=== PATIENT | female | born 1965 | race African-American/Black ===

== ENCOUNTER 2016-04-28 14:09 | Emergency (ER) | payer BC ==
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
[2016-04-28 14:45] VITALS: BP 111/72; PULSE 64; RESP 18; TEMP 97.2; O2SAT 99
[2016-04-28 16:29] LABS: AMPHETAMINE, URINE NEG (NEG); BARBITURATES, URINE NEG (NEG); COCAINE, URINE POS (NEG)
[2016-04-28 16:40] LABS: AUTOMATED NEUTROPHIL # 5.5 TH/MM3 (1.8-7.7); BASOPHIL % 0.6 % (0.0-2.0); EOSINOPHIL % 0.4 % (0.0-4.0); HEMATOCRIT 47.2 % (35.0-46.0); HEMO FLAGS DIFF FINAL; LYMPH % 14.8 % (9.0-44.0); LYMPHOCYTE # 1.1 TH/MM3 (1.0-4.8); MEAN CELL VOLUME 96.1 FL (80.0-100.0); MEAN CORPUSCULAR HEMOGLOBIN 30.6 PG (27.0-34.0); MEAN CORPUSCULAR HGB CONC 31.9 % (32.0-36.0); MONO % 9.5 % (0.0-8.0); NEUT % 74.7 % (16.0-70.0); PLATELET COUNT 197 TH/MM3 (150-450); RED BLOOD COUNT 4.92 MIL/MM3 (4.00-5.30); RED CELL DISTRIBUTION WIDTH 14.5 % (11.6-17.2); WHITE BLOOD COUNT 7.3 TH/MM3 (4.0-11.0)
[2016-04-28 17:01] LABS: ANION GAP 6 MEQ/L (5-15); BICARBONATE 25.8 MEQ/L (21.0-32.0); BLOOD UREA NITROGEN 13 MG/DL (7-18); CHLORIDE 107 MEQ/L (98-107); GLOMERULAR FILTRATION RATE 54 ML/MIN (>89); SODIUM (NA) 139 MEQ/L (136-145)
[2016-04-28 17:28] LABS: POTASSIUM 4.4 MEQ/L (3.5-5.1)
== END 2016-04-28 18:12 | disposition home or self-care (01) ==
LOC: NEDAMB 14:09
DX: F14.10 Cocaine abuse, uncomplicated (principal); F12.10 Cannabis abuse, uncomplicated; F17.210 Nicotine dependence, cigarettes, uncomplicated
CPT/HCPCS: 80048; 80307; 80320; 85025; 99284

== ENCOUNTER 2016-08-28 18:25 | Emergency (ER) | payer OTHER ==
[~2016-08-28] VITALS: Ht 167.6 cm; Wt 50.0 kg
[2016-08-28 18:34] VITALS: BP 176/92; PULSE 86; RESP 20; TEMP 98.1; O2SAT 98
[2016-08-28 19:44] LABS: AUTOMATED NEUTROPHIL # 6.3 TH/MM3 (1.8-7.7); BASOPHIL # 0.1 TH/MM3 (0-0.2); BASOPHIL % 0.9 % (0.0-2.0); EOSINOPHIL # 0.1 TH/MM3 (0-0.4); HEMATOCRIT 39.7 % (35.0-46.0); HEMO FLAGS DIFF FINAL; LYMPH % 17.7 % (9.0-44.0); LYMPHOCYTE # 1.5 TH/MM3 (1.0-4.8); MEAN CELL VOLUME 91.4 FL (80.0-100.0); MEAN CORPUSCULAR HEMOGLOBIN 31.5 PG (27.0-34.0); MEAN CORPUSCULAR HGB CONC 34.4 % (32.0-36.0); MONO % 5.7 % (0.0-8.0); NEUT % 74.7 % (16.0-70.0); PLATELET COUNT 273 TH/MM3 (150-450); RED BLOOD COUNT 4.35 MIL/MM3 (4.00-5.30); RED CELL DISTRIBUTION WIDTH 15.1 % (11.6-17.2); WHITE BLOOD COUNT 8.5 TH/MM3 (4.0-11.0)
--- NOTE | 2016-08-28 19:58 | PD ---
HPI Chief Complaint: Psychiatric Symptoms Time Seen by Provider: 18:51 Travel History International Travel<30 days: No Contact w/Intl Traveler<30days: No Traveled to known affect area: No History of Present Illness HPI This is a 50-year-old female who presents to the emergency department reporting that she wanted to hurt herself. She says she hears voices sometimes telling her to kill her self. She says she's been abusing cocaine `and K2. She is brought in under Marie act and police documented that she also is saying she wanted to kill other people. Patient doesn't provide much history. PFSH Past Medical History Gastrointestinal Disorders: Yes (GASTRITIS) Pancreatitis: Yes Ulcer: Yes ?: Not Menopausal: No Social History Alcohol Use: Yes Tobacco Use: Yes Substance Use: Yes Allergies-Medications (Allergen,Severity, Reaction): Coded Allergies: No Known Allergies (Unverified , 04/28/16) Reported Meds & Prescriptions Reported Meds & Active Scripts Active Review of Systems ROS Limitations: Psychotic Physical Exam Narrative GENERAL: Disheveled appearing. SKIN: Focused skin assessment warm and dry. HEAD: Atraumatic. Normocephalic. EYES: Pupils equal and round. No injection or drainage. ENT: Moist mucous membranes NECK: Trachea midline. CARDIOVASCULAR: Regular rate and rhythm. No murmur appreciated. RESPIRATORY: Clear to auscultation. Breath sounds equal bilaterally. GASTROINTESTINAL: Abdomen soft, non-tender, nondistended. MUSCULOSKELETAL: No obvious deformities. NEUROLOGICAL: Awake and alert. No obvious cranial nerve deficits. Moving all extremities. PSYCHIATRIC: Tearful, poor eye contact, poor insight and judgment. Data Data Last Documented VS Vital Signs Date Time Temp Pulse Resp B/P Pulse Ox O2 Delivery O2 Flow Rate FiO2 08/28/16 18:34 98.1 86 20 176/92 98 Orders Complete Blood Count With Diff (08/28/16 19:33) Comprehensive Metabolic Panel (08/28/16 19:33) ^ Insert Iv (08/28/16 19:33) Alcohol (Ethanol) (08/28/16 19:33) Drug Screen, Random Urine (08/28/16 19:33) Lorazepam Inj (Ativan Inj) (08/28/16 20:00) Lorazepam (Ativan) (08/28/16 20:15) Labs Laboratory Tests Test 08/28/16 19:35 White Blood Count 8.5 TH/MM3 Red Blood Count 4.35 MIL/MM3 Hemoglobin 13.7 GM/DL Hematocrit 39.7 % Mean Corpuscular Volume 91.4 FL Mean Corpuscular Hemoglobin 31.5 PG Mean Corpuscular Hemoglobin 34.4 % Concent Red Cell Distribution Width 15.1 % Platelet Count 273 TH/MM3 Mean Platelet Volume 6.8 FL Neutrophils (%) (Auto) 74.7 % Lymphocytes (%) (Auto) 17.7 % Monocytes (%) (Auto) 5.7 % Eosinophils (%) (Auto) 1.0 % Basophils (%) (Auto) 0.9 % Neutrophils # (Auto) 6.3 TH/MM3 Lymphocytes # (Auto) 1.5 TH/MM3 Monocytes # (Auto) 0.5 TH/MM3 Eosinophils # (Auto) 0.1 TH/MM3 Basophils # (Auto) 0.1 TH/MM3 CBC Comment DIFF FINAL Differential Comment Sodium Level 143 MEQ/L Potassium Level 3.7 MEQ/L Chloride Level 108 MEQ/L Carbon Dioxide Level 27.8 MEQ/L Anion Gap 7 MEQ/L Blood Urea Nitrogen 12 MG/DL Creatinine 1.00 MG/DL Estimat Glomerular Filtration 71 ML/MIN Rate Random Glucose 145 MG/DL Calcium Level 8.3 MG/DL Total Bilirubin 0.2 MG/DL Aspartate Amino Transf 20 U/L (AST/SGOT) Alanine Aminotransferase 25 U/L (ALT/SGPT) Alkaline Phosphatase 92 U/L Total Protein 7.0 GM/DL Albumin 3.0 GM/DL Urine Opiates Screen NEG Urine Barbiturates Screen NEG Urine Amphetamines Screen NEG Urine Benzodiazepines Screen NEG Urine Cocaine Screen POS Urine Cannabinoids Screen POS Ethyl Alcohol Level LESS THAN 3 MG/DL MDM Medical Decision Making Medical Screen Exam Complete: Yes Emergency Medical Condition: Yes Interpretation(s) Afebrile, hypertensive No leukocytosis Electrolytes are reassuring Urine drug screen is positive for cocaine and cannabinoid's Differential Diagnosis Depression, psychosis, bipolar disorder, substance induced mood disorder Narrative Course This is a 50-year-old female who presents to the emergency department reporting suicidal and homicidal ideation. She makes poor eye contact and is tearful and somewhat agitated. Labs were obtained which were all reassuring. Urine drug screen was positive for cocaine and cannabinoid. Patient is medically cleared to be evaluated by psychiatry. I suspect this reflects a substance-induced mood disorder. Liliana Mitchell MD August 28, 2016 19:58
[2016-08-28] MEDS ORDERED: LORazepam 2 MG/ML VIAL IV PUSH ONE (20:00)
[2016-08-28 20:11] LABS: ANION GAP 7 MEQ/L (5-15)
[2016-08-28 20:15] LABS: ALKALINE PHOSPHATASE 92 U/L (45-117); ALT (GPT) 25 U/L (10-53); AST (GOT) 20 U/L (15-37); BICARBONATE 27.8 MEQ/L (21.0-32.0); BLOOD UREA NITROGEN 12 MG/DL (7-18); CHLORIDE 108 MEQ/L (98-107); GLOMERULAR FILTRATION RATE 71 ML/MIN (>89); POTASSIUM 3.7 MEQ/L (3.5-5.1); SODIUM (NA) 143 MEQ/L (136-145); TOTAL BILIRUBIN ADULT 0.2 MG/DL (0.2-1.0)
[2016-08-28] MEDS ORDERED: LORazepam 0.5 MG TAB PO ONE (20:15)
[2016-08-28 20:16] LABS: AMPHETAMINE, URINE NEG (NEG); BARBITURATES, URINE NEG (NEG); COCAINE, URINE POS (NEG)
[2016-08-28 22:58] VITALS: BP 148/92; PULSE 63; RESP 18; O2SAT 97
[2016-08-28 23:13] VITALS: BP 148/85; PULSE 63; RESP 18
[2016-08-29 02:27] VITALS: BP 153/77; PULSE 51; RESP 16; O2SAT 100
[2016-08-29 06:26] VITALS: BP 162/85; PULSE 50; RESP 16; O2SAT 98
[2016-08-29 11:38] VITALS: BP 150/93; PULSE 62; RESP 17; O2SAT 96
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
[2016-08-29 18:47] VITALS: BP 150/72; PULSE 68; RESP 20; TEMP 98.6; O2SAT 97
[2016-08-29 23:13] VITALS: BP 108/61; PULSE 93; RESP 19; O2SAT 100
[2016-08-30 02:00] VITALS: BP 129/85; PULSE 58; RESP 19; O2SAT 100
[2016-08-30 09:08] VITALS: BP 129/85; PULSE 58; RESP 19; O2SAT 100
== END 2016-08-30 10:43 ==
LOC: NEPD 18:25 → NEPJ 08-30 10:43
DX: F43.25 Adjustment disorder with mixed disturbance of emotions and conduct (principal); F19.10 Other psychoactive substance abuse, uncomplicated; Z72.0 Tobacco use; F12.90 Cannabis use, unspecified, uncomplicated; Z59.0 Homelessness
CPT/HCPCS: 80053; 80307; 85025; 99284

== ENCOUNTER 2017-05-07 16:07 | Emergency (ER) | payer OTHER ==
[~2017-05-07] VITALS: Ht 167.6 cm; Wt 60.0 kg
[2017-05-07] MEDS ORDERED: TETANUS/DIPHTHERIA TOXOID ADULT 0.5 ML VIAL IM ONE (16:30)
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
[2017-05-07 16:35] VITALS: BP 161/89; PULSE 90; RESP 18; TEMP 98.6; O2SAT 96
[2017-05-07 16:45] VITALS: PULSE 80; RESP 16; O2SAT 98
[2017-05-07 18:00] VITALS: BP 145/82; PULSE 72; RESP 16; O2SAT 99
[2017-05-08 00:15] VITALS: BP 116/65; PULSE 70; RESP 14; O2SAT 98
--- NOTE | 2017-05-08 02:26 | PD ---
Physical Exam Narrative Patient signed out to me at shift change by Dr. Rico, patient has a history of cocaine/crack ingestion along with K2, is being observed until clinical sobriety. Patient is now awake, alert, is expressing a desire to go to detox, has narrow-based gait, normal speech, and is advocating well for herself. Discharge Data Data Last Documented VS Vital Signs Date Time Temp Pulse Resp B/P (MAP) Pulse Ox O2 Delivery O2 Flow Rate FiO2 05/08/17 00:15 70 14 116/65 (82) 98 Room Air 05/07/17 16:35 98.6 Orders Orders Tetanus/Diphtheria Tox Adult (Tetanus/Di (05/07/17 16:30) MDM Medical Record Reviewed: Yes Supervised Visit with ADONIS: Yes Differential Diagnosis Polysubstance abuse, intoxication Narrative Course see narrative Diagnosis Primary Impression: Polysubstance abuse Patient Instructions: General Instructions, Polysubstance Abuse (ED) Additional Instruction: Stop using crack cocaine and K2. Follow-up at [facility]. Return if symptoms worsen or progress. Scripts No Active Prescriptions or Reported Meds Disposition: 01 DISCHARGE HOME Condition: Stable Rubens Guy MD May 08, 2017 02:26
== END 2017-05-08 02:43 | disposition home or self-care (01) ==
LOC: NEPC 16:07
DX: F14.129 Cocaine abuse with intoxication, unspecified (principal); F12.129 Cannabis abuse with intoxication, unspecified; F19.129 Other psychoactive substance abuse with intoxication, unspecified; S60.511A Abrasion of right hand, initial encounter; S60.512A Abrasion of left hand, initial encounter; X58.XXXA Exposure to other specified factors, initial encounter; Z72.0 Tobacco use
CPT/HCPCS: 99283

== ENCOUNTER 2018-06-07 14:10 | Inpatient (IN) ==
[2018-06-07] MEDS ORDERED: Ibuprofen 600 MG Tablet PO ONE (15:46)
[2018-06-07] MEDS ORDERED: Sod Chloride 0.9% Inj 1,000 ML IV.SIG ONE (15:46)
--- NOTE | 2018-06-07 15:52 | ED ---
HPI General Chief Complaint: Fever Stated Complaint: Fever Time Seen by Provider: 06/07/18 15:42 Source: patient Mode of arrival: ambulatory Limitations: no limitations History of Present Illness HPI Narrative: Patient is a 52-year-old female who presents the to emergency room with complaints of fever for the past 4 days. Patient report that she has been having high fevers with a T-max of 105 degrees, reports that she has been having myalgias, chills. Patient reports that she also has had a productive cough. Patient is concerned that she may have pneumonia. Patient did not have the flu vaccine this year. Patient reports no sick contacts at home. Patient reports that she has been able to hydrate and drink plenty of fluids despite feeling sick. She denies any chest pain or shortness of breath. Patient is a smoker. Patient last took acetaminophen last night. Reports that her friend gave her [place] this morning. MD complaint: Reports fever and weakness Onset (ago): day(s) (4 days) Maximum Temperature: 105 F Context: Denies sick contacts, recent travel, recent procedure, recent antibiotic use and on chemotherapy Associated symptoms: Reports chills, myalgias, headache and cough; Denies rigors , rhinorrhea, nasal congestion, stiff neck, chest pain, shortness of breath, abdominal pain, nausea, vomiting, diarrhea and rash Relieving factors: nothing Exacerbating factors: nothing Treatments prior to arrival fever: Reports none Related Data Home Medications Medication Instructions Recorded Confirmed No Known Home Medications 06/07/18 06/07/18 Allergies Allergy/AdvReac Type Severity Reaction Status Date / Time No Known Allergies Allergy Unverified 01/02/18 18:18 Review of Systems ROS: all other systems reviewed are negative PMFSH History History Provided By: Patient Medical History Medical History Anemia (Acute) Gastritis (Acute) Pancreatitis (Acute) Surgical History Surgical History H/O shoulder surgery (Acute) Social History Social History Substance History: Past History Second Hand Smoke Exposure: Yes Smoking Status: Current every day smoker Tobacco Type: Cigarettes How Often Do You Have a Drink Containing Alcohol: 2 to 4 times a month Recent Travel in [facility] within the Last 8 Weeks: No Recent Out of Country Travel within the Last 8 Weeks: No Exam Narrative Exam Narrative: GENERAL: Moderate distress SKIN: Focused skin assessment warm/dry. HEAD: Atraumatic. Normocephalic. EYES: Pupils equal and round. No scleral icterus. No injection or drainage. ENT: No nasal bleeding or discharge. Mucous membranes pink and moist. NECK: Trachea midline. No JVD. CARDIOVASCULAR: Regular rate and rhythm. No murmur appreciated. RESPIRATORY: No accessory muscle use. Scattered wheezing. Breath sounds equal and diminished bilaterally. GASTROINTESTINAL: Abdomen soft, non-tender, nondistended. Hepatic and splenic margins not palpable. MUSCULOSKELETAL: No obvious deformities. No clubbing. No cyanosis. No edema. NEUROLOGICAL: Awake and alert. No obvious cranial nerve deficits. Motor grossly within normal limits. Normal speech. PSYCHIATRIC: Appropriate mood and affect; insight and judgment normal. Course Initial Documented Vital Signs Temperature 102.6 F H 06/07/18 14:30 Pulse Rate 90 06/07/18 14:30 Respiratory Rate 16 06/07/18 14:30 Blood Pressure 140/72 06/07/18 14:30 Pulse Oximetry 95 06/07/18 14:30 Last Documented Vital Signs Temperature 99.2 F 06/08/18 08:00 Pulse Rate 70 06/08/18 08:00 Respiratory Rate 18 06/08/18 08:00 Blood Pressure 112/68 06/08/18 08:00 Pulse Oximetry 99 06/08/18 08:00 Medical Decision Making MDM Narrative Medical decision making narrative: During the course of the patients emergency department visit, the patients history, examination, and differential diagnosis were reviewed with the patient. The patient was placed on a pnp with oximetry and frequent blood pressure monitoring. The patient had an IV access obtained and blood work sent for analysis. Lab work including blood cultures were ordered. Will check for influenza. Patient will be sent to a treatment bed. She will be given ibuprofen for fever control. Evaluated patient when she got back to the B bod-lung sounds are somewhat diminished, tympanic membranes pearly alvarado bilaterally no head or neck lymphadenopathy, she has mild erythema to her throat, she has faint wheeze to bilateral lower lungs and somewhat diminished throughout. She is in no respiratory distress at this time. Denies any chest pain, left arm pain, epigastric pain, jaw pain, back pain, palpitations, etc. Patient is lab work showing elevated white blood cell count at 14.1 with a shift in neutrophils at 87.1, lactic acid is 1.1, urinalysis is showing urine is hazy with moderate amount of blood, positive leukocyte Estrace,, positive red blood cells, positive urine white blood cells, positive bacteria and culture is indicated, CMP showing sodium at 135 EGFR is 80 creatinine is .90, AST is normal. Chest x-ray showing -right lung mass should be excluded. CT chest suggested. CT chest showing-no PE, however showing bilateral lower lobe infiltrates most pronounced involving the right lower lobe with infectious etiology suspected. Given the nodularity it was suggested that a follow-up CT of the thorax following resolution of symptoms be completed. Patient is a known drug and alcohol addicted, per her own admission. Her fever did come down to 99.3 after Tylenol administration, blood pressure is 108/57, heart rates 82, respirations 16. She is not in any acute respiratory distress at this time but her lung sounds are generally diminished. She does admit to smoking approximately pack of cigarettes a day as well. We did administer a Levaquin 500mg po x 1 dose, and added an order for an ekg, esr, crp, and rocephin IV. call placed to [facility] as there is concern for endocarditis. 1754- Spoke with Dr. Sommer, agreed to admit patient for rule out endocarditis. EKG, ESR, CRP still peding. IV Rocephin infusing. Patient stable for admission. Medical Screen Exam Complete: Yes Emergency Medical Condition: Yes Differential Diagnosis Differential Diagnosis: Influenza, pneumonia, viral syndrome, COPD exacerbation Medical Records Medical records reviewed: Yes I reviewed the patient's medical records. Lab Data Lab results reviewed: Yes I reviewed the patient's lab results. Result diagrams: 06/08/18 06:40 06/08/18 06:40 Lab Results 06/07/18 06/07/18 06/07/18 Range/Units 16:20 16:20 16:30 WBC 14.1 H (4.0-11.0) th/mm3 RBC 4.53 (4.00-5.30) mil/mm3 Hgb 14.0 (11.6-15.3) gm/dL Hct 42.1 (35.0-46.0) % MCV 92.9 (80.0-100.0) fL MCH 31.0 (27.0-34.0) pg MCHC 33.4 (32.0-36.0) % RDW 14.6 (11.6-17.2) % Plt Count 258 (150-450) th/mm3 MPV 7.4 (7.0-11.0) fL Neut % (Auto) 87.1 H (16.0-70.0) % Lymph % (Auto) 6.1 L (9.0-44.0) % [place] % (Auto) 6.7 (0.0-8.0) % Eos % (Auto) 0.0 (0.0-4.0) % Baso % (Auto) 0.1 (0.0-2.0) % Neut # (Auto) 12.3 H (1.8-7.7) th/mm3 Lymph # (Auto) 0.9 L (1.0-4.8) th/mm3 [place] # (Auto) 0.9 (0.0-0.9) th/mm3 Eos # (Auto) 0.0 (0.0-0.4) th/mm3 Baso # (Auto) 0.0 (0.0-0.2) th/mm3 WBC Differential . Differential Comment Auto diff final ESR (0-30) mm/hr Sodium (136-145) meq/L Potassium (3.5-5.1) meq/L Chloride (98-107) meq/L Carbon Dioxide (21.0-32.0) meq/L Anion Gap (5-15) meq/L BUN (7-18) mg/dL Creatinine (0.50-1.00) mg/dL Estimated GFR (>89) mL/min Random Glucose (74-106) mg/dL Lactic Acid 1.1 (0.4-2.0) mmol/L Calcium (8.5-10.1) mg/dL Total Bilirubin (0.2-1.0) mg/dL AST (15-37) U/L ALT (10-53) U/L Alkaline Phosphatase (45-117) U/L C-Reactive Protein (0.00-0.30) mg/dL Total Protein (6.4-8.2) g/dL Albumin (3.4-5.0) g/dL Urine Color Yellow (Yellw/Straw) Urine Clarity Hazy H (Clear) Urine pH 7.0 (5.0-8.5) Ur Specific [place] 1.015 (1.002-1.035) Urine Protein 30 H (Neg-Trace) mg/dL Urine Glucose (UA) Negative (Negative) mg/dL Urine Ketones Negative (Negative) mg/dL Urine Occult Blood Moderate H (Negative) Urine Nitrate Negative (Negative) Urine Bilirubin Negative (Negative) Urine Urobilinogen 2.0 H (Less than 2) mg/dL Ur Leukocyte Esterase Small H (Negative) Urine RBC 8 H (0-3) /hpf Urine WBC 12 H (0-5) /hpf Ur Squamous Epith Cells 10 (0-5) /hpf Urine Bacteria Rare H (None) /hpf Urine Mucus Few H (Occasional) /lpf Micro UA Comment Culture indicated Ur Microscopic Review Not Reportable Urine Culture Comments Culture indicated 06/07/18 06/07/18 06/07/18 Range/Units 16:30 20:12 20:12 WBC (4.0-11.0) th/mm3 RBC (4.00-5.30) mil/mm3 Hgb (11.6-15.3) gm/dL Hct (35.0-46.0) % MCV (80.0-100.0) fL MCH (27.0-34.0) pg MCHC (32.0-36.0) % RDW (11.6-17.2) % Plt Count (150-450) th/mm3 MPV (7.0-11.0) fL Neut % (Auto) (16.0-70.0) % Lymph % (Auto) (9.0-44.0) % [place] % (Auto) (0.0-8.0) % Eos % (Auto) (0.0-4.0) % Baso % (Auto) (0.0-2.0) % Neut # (Auto) (1.8-7.7) th/mm3 Lymph # (Auto) (1.0-4.8) th/mm3 [place] # (Auto) (0.0-0.9) th/mm3 Eos # (Auto) (0.0-0.4) th/mm3 Baso # (Auto) (0.0-0.2) th/mm3 WBC Differential Differential Comment ESR 60 H (0-30) mm/hr Sodium 135 L (136-145) meq/L Potassium 3.6 (3.5-5.1) meq/L Chloride 99 (98-107) meq/L Carbon Dioxide 28.9 (21.0-32.0) meq/L Anion Gap 7 (5-15) meq/L BUN 10 (7-18) mg/dL Creatinine 0.90 (0.50-1.00) mg/dL Estimated GFR 80 L (>89) mL/min Random Glucose 107 H (74-106) mg/dL Lactic Acid (0.4-2.0) mmol/L Calcium 8.3 L (8.5-10.1) mg/dL Total Bilirubin 0.4 (0.2-1.0) mg/dL AST 15 (15-37) U/L ALT 27 (10-53) U/L Alkaline Phosphatase 98 (45-117) U/L C-Reactive Protein 23.00 H (0.00-0.30) mg/dL Total Protein 7.6 (6.4-8.2) g/dL Albumin 2.7 L (3.4-5.0) g/dL Urine Color (Yellw/Straw) Urine Clarity (Clear) Urine pH (5.0-8.5) Ur Specific [place] (1.002-1.035) Urine Protein (Neg-Trace) mg/dL Urine Glucose (UA) (Negative) mg/dL Urine Ketones (Negative) mg/dL Urine Occult Blood (Negative) Urine Nitrate (Negative) Urine Bilirubin (Negative) Urine Urobilinogen (Less than 2) mg/dL Ur Leukocyte Esterase (Negative) Urine RBC (0-3) /hpf Urine WBC (0-5) /hpf Ur Squamous Epith Cells (0-5) /hpf Urine Bacteria (None) /hpf Urine Mucus (Occasional) /lpf Micro UA Comment Ur Microscopic Review Urine Culture Comments 06/08/18 06/08/18 Range/Units 06:40 06:40 WBC 12.7 H (4.0-11.0) th/mm3 RBC 3.83 L (4.00-5.30) mil/mm3 Hgb 11.7 D (11.6-15.3) gm/dL Hct 35.8 (35.0-46.0) % MCV 93.4 (80.0-100.0) fL MCH 30.6 (27.0-34.0) pg MCHC 32.8 (32.0-36.0) % RDW 14.9 (11.6-17.2) % Plt Count 223 (150-450) th/mm3 MPV 7.3 (7.0-11.0) fL Neut % (Auto) 84.1 H (16.0-70.0) % Lymph % (Auto) 9.2 (9.0-44.0) % [place] % (Auto) 6.2 (0.0-8.0) % Eos % (Auto) 0.2 (0.0-4.0) % Baso % (Auto) 0.3 (0.0-2.0) % Neut # (Auto) 10.7 H (1.8-7.7) th/mm3 Lymph # (Auto) 1.2 (1.0-4.8) th/mm3 [place] # (Auto) 0.8 (0.0-0.9) th/mm3 Eos # (Auto) 0.0 (0.0-0.4) th/mm3 Baso # (Auto) 0.0 (0.0-0.2) th/mm3 WBC Differential . Differential Comment Auto diff final ESR (0-30) mm/hr Sodium 138 (136-145) meq/L Potassium 3.4 L (3.5-5.1) meq/L Chloride 104 (98-107) meq/L Carbon Dioxide 24.5 (21.0-32.0) meq/L Anion Gap 10 (5-15) meq/L BUN 7 (7-18) mg/dL Creatinine 0.94 (0.50-1.00) mg/dL Estimated GFR 76 L (>89) mL/min Random Glucose 178 H (74-106) mg/dL Lactic Acid (0.4-2.0) mmol/L Calcium 7.7 L (8.5-10.1) mg/dL Total Bilirubin (0.2-1.0) mg/dL AST (15-37) U/L ALT (10-53) U/L Alkaline Phosphatase (45-117) U/L C-Reactive Protein (0.00-0.30) mg/dL Total Protein (6.4-8.2) g/dL Albumin (3.4-5.0) g/dL Urine Color (Yellw/Straw) Urine Clarity (Clear) Urine pH (5.0-8.5) Ur Specific [place] (1.002-1.035) Urine Protein (Neg-Trace) mg/dL Urine Glucose (UA) (Negative) mg/dL Urine Ketones (Negative) mg/dL Urine Occult Blood (Negative) Urine Nitrate (Negative) Urine Bilirubin (Negative) Urine Urobilinogen (Less than 2) mg/dL Ur Leukocyte Esterase (Negative) Urine RBC (0-3) /hpf Urine WBC (0-5) /hpf Ur Squamous Epith Cells (0-5) /hpf Urine Bacteria (None) /hpf Urine Mucus (Occasional) /lpf Micro UA Comment Ur Microscopic Review Urine Culture Comments Imaging Data Radiologist's impression: Chest X-Ray 06/07/18 15:46 CONCLUSION: Right lung mass should be excluded. CT chest suggested. Chest CTA 06/07/18 17:56 CONCLUSION: 1. No pulmonary emboli. 2. Bilateral lower lobe infiltrates most pronounced involving the right lower lobe. Infectious etiology is suspected. Given the nodularity I would suggest a follow-up CT of the thorax following resolution of symptoms to document complete resolution. Discharge Plan Discharge Disposition Patient Disposition: ED Admit(ED Internal Use Only) Discharge Condition Condition: Good Discharge Order Discharge Orders: ED Use Only Admit Order (Routine); Ordered 06/07/18 Ordered By: Shannon King Discharge Details Diagnosis: Endocarditis, Urinary tract infection Physicians Team ED Provider: Sherry Sheriff ED Midlevel Provider: Shannon King Primary Care Provider: Primary Care Aixa Echavarria Attending Provider: Aaron Bullock Other Providers: Daphne Bonilla Status ED Status: Left Department Discharge Information Discharge Date/Time: 06/07/18 21:35
[2018-06-07 16:51] LABS: Baso % (Auto) 0.1 % (0.0-2.0); Hematocrit 42.1 % (35.0-46.0); Lymph # (Auto) 0.9 th/mm3 (1.0-4.8); Lymph % (Auto) 6.1 % (9.0-44.0); Mean Corpuscular HGB Conc 33.4 % (32.0-36.0); Mean Corpuscular Volume 92.9 fL (80.0-100.0); Mean Platelet Volume 7.4 fL (7.0-11.0); Mono # (Auto) 0.9 th/mm3 (0.0-0.9); Mono % (Auto) 6.7 % (0.0-8.0); Neut # (Auto) 12.3 th/mm3 (1.8-7.7); Neut % (Auto) 87.1 % (16.0-70.0); Platelet Count 258 th/mm3 (150-450); Red Blood Count 4.53 mil/mm3 (4.00-5.30); Red Cell Distribution Width 14.6 % (11.6-17.2); White Blood Count 14.1 th/mm3 (4.0-11.0)
[2018-06-07 16:56] LABS: Bacteria,Urine Rare /hpf; Bilirubin,Urine Negative (Negative); Clarity,Urine Hazy (Clear); Color,Urine Yellow (Yellw/Straw); Glucose,Urine (UA) Negative (Negative); Leukocyte Esterase,Urine Small (Negative); Mucus,Urine Few /lpf (Occasional); Nitrite,Urine Negative (Negative); Specific Gravity,Urine 1.015 (1.002-1.035); Squamous Epithelial Cell,Urine 10 /hpf (0-5)
[2018-06-07 17:05] LABS: Alanine Aminotransferase 27 U/L (10-53); Albumin 2.7 g/dL (3.4-5.0); Anion Gap 7 meq/L (5-15); Aspartate Aminotransferase 15 U/L (15-37); Blood Urea Nitrogen 10 mg/dL (7-18); Calcium 8.3 mg/dL (8.5-10.1); Carbon Dioxide 28.9 meq/L (21.0-32.0); Chloride 99 meq/L (98-107); Glomerular Filtration Rate 80 mL/min (>89); Glucose,Random 107 mg/dL (74-106); Potassium 3.6 meq/L (3.5-5.1); Sodium 135 meq/L (136-145)
[2018-06-07 17:08] LABS: Alkaline Phosphatase 98 U/L (45-117); Total Protein 7.6 g/dL (6.4-8.2)
--- NOTE | 2018-06-07 17:24 | XR ---
EXAM DATE: 06/07/2018 5:21 PM EST AGE/SEX: 52 years / Female INDICATIONS: Cough. CLINICAL DATA: This is the patient's initial encounter. Patient reports that signs and symptoms have been present for 4 - 6 days and indicates a pain score of 0/10. MEDICAL/SURGICAL HISTORY: None. None. [place] [facility] [place] . FINDINGS: Left lung is clear. Heart size normal. There is a vague parenchymal opacity in the right mid to lower lung suspect for mass or area of consolidation. There are no effusions. The osseous structures are i ntact. CONCLUSION: Right lung mass should be excluded. CT chest suggested. Electronically signed by: Javon Mayes MD Board Certified Radiologist 06/07/2018 5:23 PM EST
[2018-06-07] MEDS ORDERED: Acetaminophen 500 MG Tablet PO ONE (17:28)
[2018-06-07] MEDS ORDERED: levoFLOXacin 500 MG Tablet PO ONE (17:44)
--- NOTE | 2018-06-07 18:49 | CT ---
EXAM DATE: 06/07/2018 6:20 PM EST AGE/SEX: 52 years / Female INDICATIONS: Flu like symptoms CLINICAL DATA: This is the patient's initial encounter. Patient reports that signs and symptoms have been present for 1 day and indicates a pain score of 3/10. MEDICAL/SURGICAL HISTORY: Anemia. Pancreatitis. Seizures. None. RADIATION DOSE: 4.28 CTDI (mGy) COMPARISON: [facility] [place] ABDOMEN & PELVIS W CONTRAST, 12/27/2015. . TECHNIQUE: Volumetric scanning was performed using a multi-row detector CT scanner during bolus infu dawit of 72 ml Omnipaque 350 (iohexol) nonionic water-soluble contrast as a single exam dose. The jennifer a was post processed with a variety of visualization algorithms including full volume maximum intensi ty projection and sliding thin slab reformation. Using automated exposure control and adjustment of t he mA and/or kV according to patient size, radiation dose was kept as low as reasonably achievable to obtain optimal diagnostic quality images. DICOM format image data is available electronically for r eview and comparison. FINDINGS: Pulmonary Arteries: No filling defects are seen in the pulmonary arteries out to the subsegmental ve ssels. The left and right pulmonary arteries are normal in diameter. Lung: A focal area of rounded consolidation is seen within the superior segment of the right lower l obe. Small air bronchogram formation is noted. No bronchiectasis. Patchy areas of consolidation are s een involving the left lower lobe and more inferior aspects of the right lower lobe.. Effusion: None. Mediastinum: No evidence of mediastinal or hilar adenopathy. Other: The axilla is unremarkable. Numerous hepatic and renal cysts partially seen. These are unchan ged from the prior study. CONCLUSION: 1. No pulmonary emboli. 2. Bilateral lower lobe infiltrates most pronounced involving the right lower lobe. Infectious etiol ogy is suspected. Given the nodularity I would suggest a follow-up CT of the thorax following resolut ion of symptoms to document complete resolution. Electronically signed by: Darell Shepherd MD Board Certified Radiologist 06/07/2018 6:48 PM EST
[2018-06-07] MEDS ORDERED: Bisacodyl 10 MG Supp RECTAL PRN (20:37)
[2018-06-07] MEDS ORDERED: Acetaminophen 325 MG Tablet PO PRN (20:37)
[2018-06-07] MEDS ORDERED: Vancomycin Consult Pharmacy OTHER PRN (20:43)
[2018-06-07] MEDS ORDERED: Haloperidol Inj 5 MG/ML Ampul IV.PUSH PRN (20:46)
[2018-06-07] MEDS ORDERED: LORazepam 1 MG Tablet PO PRN (20:46)
[2018-06-07] MEDS: Heparin - SQ 10,000 UNITS/ML Vial SQ SCH (22:42)
[2018-06-07] MEDS: Senna/Docusate Sodium 8.6/50 MG Tablet PO SCH (22:42)
[2018-06-07] MEDS: Vancomycin Inj 1,000 MG in Sodium Chlor 0.9% Inj 250 ML IV.SIG SCH (22:44)
[2018-06-07] MEDS: Sod Chloride 0.9% Inj 1,000 ML IV.CONT SCH (22:44)
[2018-06-07] MEDS: Piperacil/Tazo 4.5 GM Premix 4.5 GM/100 ML BAG IV.SIG SCH (22:44)
--- NOTE | 2018-06-08 03:55 | P.HPIM ---
History of Present Illness Primary Care Physician: No Primary Care Physician 52-year-old female with a past medical history significant for cocaine abuse presents to the emergency department for evaluation of fever. The patient reports that her fever at home was as high as 104. She reports fevers for the past 5 days. She endorses an accompanying headache. She denies any chest pain , shortness of breath or cough/congestion. Abdominal pain. No nausea/vomiting/ diarrhea. No focal neurologic deficits. Inpatient Certification Inpatient Certification: I certify that the inpatient services were ordered in accordance with Medicare regulations governing the order. This includes certification that hospital inpatient services are reasonable and necessary and in the case of services not specified as inpatient-only under 42 CFR 419.22(n), that they are appropriately provided as inpatient services in accordance to with the 2-midnight benchmark under 43 CFR 412.3(e) Estimated Total Length of Stay (Days): 4 Plans for Post Hospital Care: Home Review of Systems Review of Systems: all other systems reviewed are negative [facility] Medical History Medical History Anemia (Acute) Gastritis (Acute) Pancreatitis (Acute) Surgical History Surgical History H/O shoulder surgery (Acute) Family History Family History Other Diabetes mellitus Social History Social History Substance History: Past History Second Hand Smoke Exposure: Yes Smoking Status: Current every day smoker Tobacco Type: Cigarettes How Often Do You Have a Drink Containing Alcohol: 2 to 4 times a month Recent Travel in [facility] within the Last 8 Weeks: No Recent Out of Country Travel within the Last 8 Weeks: No Immunization History Tetanus Immunization: <5 Years Medications and Allergies Allergies Allergy/AdvReac Type Severity Reaction Status Date / Time No Known Allergies Allergy Unverified 01/02/18 18:18 Home Medications Medication Instructions Recorded Confirmed Type No Known Home Medications 06/07/18 06/07/18 History Active Medications: Active Medications Acetaminophen (Tylenol) 650 mg PO Q4H PRN PRN Reason: Temp > 100.4 Al Hydroxide/Mg Hydroxide (Milk Of Magnesia Liq) 30 ml PO Q12H PRN PRN Reason: Mild Constipation Bisacodyl (Dulcolax Supp) 10 mg RECTAL DAILY PRN PRN Reason: SEVERE CONSITIPATION Flumazenil (Romazicon Inj) 0.2 mg IV.PUSH Q1M PRN PRN Reason: OVERSEDATION Haloperidol Lactate (Haldol Inj) 1 mg IV.PUSH Q15M PRN PRN Reason: for severe agitation Heparin Sodium (Porcine) (Heparin Inj) 5,000 units SQ Q8H [facility] Last Admin: 06/07/18 22:42 Dose: 5,000 units Sodium Chloride (Ns Inj) 1,000 mls @ 70 mls/hr IV.CONT .[id number] [facility] Last Admin: 06/07/18 22:44 Dose: 70 mls/hr Vancomycin HCl 1,000 mg/ (Sodium Chloride) 250 mls @ 250 mls/hr IV.SIG Q18H [facility] Last Infusion: 06/07/18 23:55 Dose: Infused Piperacillin/Tazobactam/Dextrose (Zosyn 4.5 Gm Premix) 4.5 gm in 100 mls @ 200 mls/hr IV.SIG Q6H [facility] Last Infusion: 06/07/18 23:15 Dose: Infused Lactulose (Lactulose Liq) 30 ml PO DAILY PRN PRN Reason: SEVERE CONSITIPATION Lorazepam (Ativan) 2 mg PO Q2H PRN PRN Reason: for CIWA 11-14 Lorazepam (Ativan Inj) 2 mg IV.PUSH Q2H PRN PRN Reason: for CIWA 11-14 Lorazepam (Ativan Inj) 2 mg IV.PUSH Q1H PRN PRN Reason: for CIWA 15-20 Lorazepam (Ativan Inj) 2 mg IV.PUSH Q15M PRN PRN Reason: for CIWA > 20 Lorazepam (Ativan Inj) 1 mg IV.PUSH Q4H PRN PRN Reason: for CIWA 8-10 Lorazepam (Ativan) 1 mg PO Q4H PRN PRN Reason: for CIWA 8-10 Miscellaneous Information ([facility] Ordered Lab Info) 0 each OTHER ONCE ONE Stop: 06/09/18 09:46 Ondansetron HCl (Zofran Inj) 4 mg IV.PUSH Q6H PRN PRN Reason: NAUSEA OR VOMITING Pharmacy Profile Note (Vancomycin Consult Pharmacy) 1 each OTHER UNSCH PRN PRN Reason: Pharmacy to dose Senna/Docusate Sodium (Mayra-Colace) 1 tab PO BID [facility] Last Admin: 06/07/18 22:42 Dose: 1 tab Sennosides (Senokot) 17.2 mg PO Q12H PRN PRN Reason: Moderate Constipation Sodium Chloride (Ns Flush) 2 ml IV.FLUSH PRN PRN PRN Reason: FLUSH AFTER USING IV ACCESS Sodium Chloride (Ns Flush) 2 ml IV.FLUSH BID [facility] Last Admin: 06/07/18 22:45 Dose: Not Given Sodium Chloride (Ns Flush) 2 ml IV.FLUSH PRN PRN PRN Reason: FLUSH AFTER USING IV ACCESS Physical Exam Vital signs: Vital Signs 06/07/18 14:30 06/07/18 17:22 06/07/18 17:33 Temperature 102.6 F H 101.3 F H Pulse Rate 90 Respiratory Rate 16 16 Blood Pressure 140/72 Pulse Oximetry 95 06/07/18 18:28 06/07/18 22:49 Temperature 99.3 F 98.7 F Pulse Rate 82 73 Respiratory Rate 16 16 Blood Pressure 108/57 L 115/88 Pulse Oximetry 96 96 Intake & Output 06/07/18 06/07/18 06/08/18 06:59 18:59 06:59 Intake Total 1000 / 1000 450 / 450 Balance 1000 / 1000 450 / 450 Weight 54.431 kg 54.43 kg Intake: IV 1000 / 1000 450 / 450 Zosyn 4.5 GM Premix 4.5 gm In 100 / 100 100 ml @ 200 mls/hr IV.SIG Q6H [facility] Rx#:[id number] NS Inj 1,000 ML @ Wide Open IV. 1000 / 1000 SIG BOLUS ONE Rx#:[id number] Vancomycin Inj 1,000 MG In NS 250 / 250 Inj 250 ML @ 250 mls/hr IV.SIG Q18H [facility] Rx#:[id number] Rocephin Inj 1,000 MG In NS Inj 100 / 100 100 ML @ 200 mls/hr IV.SIG ONCE ONE Rx#:[id number] Other: Date of Last Bowel Movement 06/07/18 Weight On Admission 54.431 kg Narrative: Gen.: No acute distress Head: Normocephalic. Atraumatic. EENT: Pupils equal round and reactive to light. Nose without drainage. Airway intact. Throat without injection. Cardiovascular: Regular rate and rhythm. No murmurs, rubs or gallops. Respiratory: Lungs clear to auscultation bilaterally. No wheezes or rhonchi. Abdomen: Soft, nontender, nondistended. No peritoneal signs. Musculoskeletal: No gross deformities. No edema. Skin: No obvious rashes or erythema. Neuro: Sensory and motor grossly intact. Cranial nerves II through XII grossly intact. Results Labs CBC & Chem 7: 06/07/18 16:30 06/07/18 16:30 Imaging Impressions Chest X-Ray 06/07/18 15:46 CONCLUSION: Right lung mass should be excluded. CT chest suggested. Chest CTA 06/07/18 17:56 CONCLUSION: 1. No pulmonary emboli. 2. Bilateral lower lobe infiltrates most pronounced involving the right lower lobe. Infectious etiology is suspected. Given the nodularity I would suggest a follow-up CT of the thorax following resolution of symptoms to document complete resolution. Caprini VTE Risk Assessment Caprini VTE Risk Assessment: No/Low Risk (score <= 1) Caprini Risk Assessment Model: Point Value = 1 Point Value = 2 Point Value = 3 Point Value = 5 Age 41-60 Minor surgery BMI > 25 kg/m2 Swollen legs Varicose veins or History of unexplained or recurrent spontaneous Oral contraceptives or hormone replacement Sepsis (< 1 month) Serious lung disease, including pneumonia (< 1 month) Abnormal pulmonary function Acute myocardial infarction Congestive heart failure (< 1 month) History of inflammatory bowel disease Medical patient at bed rest Age 61-74 Arthroscopic surgery Major open surgery (> 45 min) Laparoscopic surgery (> 45 min) Malignancy Confined to bed (> 72 hours) Immobilizing plaster cast Central venous access Age >= 75 History of VTE Family history of VTE Factor V Leiden Prothrombin [id number] Lupus anticoagulant Anticardiolipin antibodies Elevated serum homocysteine Heparin-induced thrombocytopenia Other congenital or acquired thrombophilia Stroke (< 1 month) Elective arthroplasty Hip, pelvis, or leg fracture Acute spinal cord injury (< 1 month) Prophylaxis Regimen: Total Risk Factor Score Risk Level Prophylaxis Regimen 0-1 Low Early ambulation 2 Moderate Order ONE of the following: *Sequential Compression Device (SCD) *Heparin 5000 units SQ BID 3-4 Higher Order ONE of the following medications: *Heparin 5000 units SQ TID *Enoxaparin/Lovenox 40 mg SQ daily (WT < 150 kg, CrCl > 30 mL/min) *Enoxaparin/Lovenox 30 mg SQ daily (WT < 150 kg, CrCl > 10-29 mL/min) *Enoxaparin/Lovenox 30 mg SQ BID (WT < 150 kg, CrCl > 30 mL/min) AND/OR *Sequential Compression Device (SCD) 5 or more Highest Order ONE of the following medications: *Heparin 5000 units SQ TID (Preferred with Epidurals) *Enoxaparin/Lovenox 40 mg SQ daily (WT < 150 kg, CrCl > 30 mL/min) *Enoxaparin/Lovenox 30 mg SQ daily (WT < 150 kg, CrCl > 10-29 mL/min) *Enoxaparin/Lovenox 30 mg SQ BID (WT < 150 kg, CrCl > 30 mL/min) AND *Sequential Compression Device (SCD) Assessment and Plan Plan Assessment/plan: 1. Pneumonia/Fever Chest CT shows bilateral lower lobe infiltrates with nodular features Concern for embolic disease Vancomycin/Zosyn Echo pending Infectious disease consulted, appreciate assistance Blood cultures pending 2. Cocaine abuse Cessation counseling provided FEN Heart healthy diet Electrolytes: Monitor and replete as needed NS at 70 cc/hour H&P: Quality VTE Deep Vein Thrombosis/Pulmonary Embolism Present on Admission: No
[2018-06-08] MEDS: Piperacil/Tazo 4.5 GM Premix 4.5 GM/100 ML BAG IV.SIG SCH ×4 (04:02→20:40)
[2018-06-08] MEDS: Heparin - SQ 10,000 UNITS/ML Vial SQ SCH ×3 (04:03→20:38)
[2018-06-08 07:22] LABS: Baso % (Auto) 0.3 % (0.0-2.0); Eos % (Auto) 0.2 % (0.0-4.0); Hematocrit 35.8 % (35.0-46.0); Hemoglobin 11.7 gm/dL (11.6-15.3); Lymph # (Auto) 1.2 th/mm3 (1.0-4.8); Lymph % (Auto) 9.2 % (9.0-44.0); Mean Corpuscular HGB Conc 32.8 % (32.0-36.0); Mean Corpuscular Hemoglobin 30.6 pg (27.0-34.0); Mean Corpuscular Volume 93.4 fL (80.0-100.0); Mean Platelet Volume 7.3 fL (7.0-11.0); Mono # (Auto) 0.8 th/mm3 (0.0-0.9); Mono % (Auto) 6.2 % (0.0-8.0); Neut # (Auto) 10.7 th/mm3 (1.8-7.7); Neut % (Auto) 84.1 % (16.0-70.0); Platelet Count 223 th/mm3 (150-450); Red Blood Count 3.83 mil/mm3 (4.00-5.30); Red Cell Distribution Width 14.9 % (11.6-17.2); White Blood Count 12.7 th/mm3 (4.0-11.0)
[2018-06-08 07:37] LABS: Calcium 7.7 mg/dL (8.5-10.1); Carbon Dioxide 24.5 meq/L (21.0-32.0); Potassium 3.4 meq/L (3.5-5.1)
--- NOTE | 2018-06-08 10:29 | P.PNIM ---
Subjective Interval history: 52 y/o female with past medical history of cocaine abuse presents with a 5 day history of fever and chills ruled as Pneumonia. She states the fever has been as high as 104F. She reports the fever is accompanied by a headache and a productive cough. She states she is feeling much better this morning although she is still having a right sided headache, some chills, and a productive cough. She denies any chest pain, shortness of breath, or abdominal pain. Denies nausea, vomiting, or diarrhea. Physical Exam Vital signs: Vital Signs 06/07/18 14:30 06/07/18 17:22 06/07/18 17:33 Temperature 102.6 F H 101.3 F H Pulse Rate 90 Respiratory Rate 16 16 Blood Pressure 140/72 Pulse Oximetry 95 06/07/18 18:28 06/07/18 22:49 06/08/18 04:00 Temperature 99.3 F 98.7 F 98.9 F Pulse Rate 82 73 76 Respiratory Rate 16 16 18 Blood Pressure 108/57 L 115/88 118/66 Pulse Oximetry 96 96 98 06/08/18 08:00 Temperature 99.2 F Pulse Rate 70 Respiratory Rate 18 Blood Pressure 112/68 Pulse Oximetry 99 Intake & Output 06/07/18 06/08/18 06/08/18 18:59 06:59 18:59 Intake Total 1000 / 1000 1450 / 1450 Balance 1000 / 1000 1450 / 1450 Weight 54.431 kg 54.43 kg Intake: IV 1000 / 1000 550 / 550 Zosyn 4.5 GM Premix 4.5 gm In 200 / 200 100 ml @ 200 mls/hr IV.SIG Q6H [facility] Rx#:[id number] NS Inj 1,000 ML @ Wide Open IV. 1000 / 1000 SIG BOLUS ONE Rx#:[id number] Vancomycin Inj 1,000 MG In NS 250 / 250 Inj 250 ML @ 250 mls/hr IV.SIG Q18H [facility] Rx#:[id number] Rocephin Inj 1,000 MG In NS Inj 100 / 100 100 ML @ 200 mls/hr IV.SIG ONCE ONE Rx#:[id number] Oral 480 / 480 Other 420 / 420 Other: Other Intake Source Saline Solution # Voids 4 Date of Last Bowel Movement 06/07/18 Weight On Admission 54.431 kg Narrative: Exam Narrative: GENERAL: Pleasant female sitting in her wheelchair appearing in NAD. HEENT: Atraumatic. Normocephalic. Pupils equal and round. No scleral icterus. No nasal bleeding or discharge. Mucous membranes pink and moist. CARDIOVASCULAR: Regular rate and rhythm. No murmur appreciated. RESPIRATORY: No accessory muscle use. Slight bilateral lower lobe rhonchi appreciated. Breath sounds equal and diminished bilaterally. GASTROINTESTINAL: Abdomen soft, non-tender, nondistended. MUSCULOSKELETAL: No obvious deformities. No clubbing. No cyanosis. No edema. NEUROLOGICAL: Awake and alert. Motor grossly within normal limits. Normal speech. PSYCHIATRIC: Appropriate mood and affect; insight and judgment normal. Results - Labs CBC & Chem 7: 06/08/18 06:40 06/08/18 06:40 Laboratory Results - last 24 hr 06/07/18 06/07/18 06/07/18 16:20 16:20 16:30 WBC 14.1 H RBC 4.53 Hgb 14.0 Hct 42.1 MCV 92.9 MCH 31.0 MCHC 33.4 RDW 14.6 Plt Count 258 MPV 7.4 Neut % (Auto) 87.1 H Lymph % (Auto) 6.1 L [place] % (Auto) 6.7 Eos % (Auto) 0.0 Baso % (Auto) 0.1 Neut # (Auto) 12.3 H Lymph # (Auto) 0.9 L [place] # (Auto) 0.9 Eos # (Auto) 0.0 Baso # (Auto) 0.0 WBC Differential . Differential Comment Auto diff final ESR Sodium Potassium Chloride Carbon Dioxide Anion Gap BUN Creatinine Estimated GFR Random Glucose Lactic Acid 1.1 Calcium Total Bilirubin AST ALT Alkaline Phosphatase C-Reactive Protein Total Protein Albumin Urine Color Yellow Urine Clarity Hazy H Urine pH 7.0 Ur Specific [place] 1.015 Urine Protein 30 H Urine Glucose (UA) Negative Urine Ketones Negative Urine Occult Blood Moderate H Urine Nitrate Negative Urine Bilirubin Negative Urine Urobilinogen 2.0 H Ur Leukocyte Esterase Small H Urine RBC 8 H Urine WBC 12 H Ur Squamous Epith Cells 10 Urine Bacteria Rare H Urine Mucus Few H Micro UA Comment Culture indicated Ur Microscopic Review Not Reportable Urine Culture Comments Culture indicated 06/07/18 06/07/18 06/07/18 16:30 20:12 20:12 WBC RBC Hgb Hct MCV MCH MCHC RDW Plt Count MPV Neut % (Auto) Lymph % (Auto) [place] % (Auto) Eos % (Auto) Baso % (Auto) Neut # (Auto) Lymph # (Auto) [place] # (Auto) Eos # (Auto) Baso # (Auto) WBC Differential Differential Comment ESR 60 H Sodium 135 L Potassium 3.6 Chloride 99 Carbon Dioxide 28.9 Anion Gap 7 BUN 10 Creatinine 0.90 Estimated GFR 80 L Random Glucose 107 H Lactic Acid Calcium 8.3 L Total Bilirubin 0.4 AST 15 ALT 27 Alkaline Phosphatase 98 C-Reactive Protein 23.00 H Total Protein 7.6 Albumin 2.7 L Urine Color Urine Clarity Urine pH Ur Specific [place] Urine Protein Urine Glucose (UA) Urine Ketones Urine Occult Blood Urine Nitrate Urine Bilirubin Urine Urobilinogen Ur Leukocyte Esterase Urine RBC Urine WBC Ur Squamous Epith Cells Urine Bacteria Urine Mucus Micro UA Comment Ur Microscopic Review Urine Culture Comments 06/08/18 06/08/18 06:40 06:40 WBC 12.7 H RBC 3.83 L Hgb 11.7 D Hct 35.8 MCV 93.4 MCH 30.6 MCHC 32.8 RDW 14.9 Plt Count 223 MPV 7.3 Neut % (Auto) 84.1 H Lymph % (Auto) 9.2 [place] % (Auto) 6.2 Eos % (Auto) 0.2 Baso % (Auto) 0.3 Neut # (Auto) 10.7 H Lymph # (Auto) 1.2 [place] # (Auto) 0.8 Eos # (Auto) 0.0 Baso # (Auto) 0.0 WBC Differential . Differential Comment Auto diff final ESR Sodium 138 Potassium 3.4 L Chloride 104 Carbon Dioxide 24.5 Anion Gap 10 BUN 7 Creatinine 0.94 Estimated GFR 76 L Random Glucose 178 H Lactic Acid Calcium 7.7 L Total Bilirubin AST ALT Alkaline Phosphatase C-Reactive Protein Total Protein Albumin Urine Color Urine Clarity Urine pH Ur Specific [place] Urine Protein Urine Glucose (UA) Urine Ketones Urine Occult Blood Urine Nitrate Urine Bilirubin Urine Urobilinogen Ur Leukocyte Esterase Urine RBC Urine WBC Ur Squamous Epith Cells Urine Bacteria Urine Mucus Micro UA Comment Ur Microscopic Review Urine Culture Comments Microbiology 06/07/18 16:20 Nasal Wash Influenza Types A,B Antigen - Final Negative for FLU A and B antigen Infection due to influenza A or B cannot be ruled out since the antigen present in the sample may be below the detection limit of the test. - Imaging Impressions Chest X-Ray 06/07/18 15:46 CONCLUSION: Right lung mass should be excluded. CT chest suggested. Chest CTA 06/07/18 17:56 CONCLUSION: 1. No pulmonary emboli. 2. Bilateral lower lobe infiltrates most pronounced involving the right lower lobe. Infectious etiology is suspected. Given the nodularity I would suggest a follow-up CT of the thorax following resolution of symptoms to document complete resolution. Assessment and Plan - Plan 52 y/o female with past medical history of cocaine abuse presents with a 5 day history of fever and chills ruled as sepsis with CAP. Sepsis with Community Acquired Pneumonia, Acute: Meets sepsis criteria with leukocytosis WBC: 14.1K and fever of 102.6 on admission. Probable source is pneumonia. -Chest CT shows bilateral lower lobe infiltrates with nodular features, concern for embolic disease -Continue abx with Vancomycin/Zosyn -Echo pending to rule out endocarditis -Infectious disease consulted, appreciate assistance -Blood cultures pending -Patient feeling better this morning, fever is trending down 101.3 -> 99.2 Cocaine abuse: Per patient report -Cessation counseling provided Hypokalemia: Potassium 3.4 -Give PO KCl 20 mEq x1 -Repeat labs in the morning DVT Prophylaxis: Heparin Note prepared by Nolvia [email or web address] and reviewed by Daniela Miller PA-C, agrees with above assessment and plan.
[2018-06-08] MEDS: Senna/Docusate Sodium 8.6/50 MG Tablet PO SCH ×2 (10:36→20:45)
--- NOTE | 2018-06-08 10:42 | ECHRPT ---
Indication: SEPSIS POSS ENDOCARDITIS CONCLUSIONS Normal left ventricular size. Mild concentric left ventricular hypertrophy. The left ventricular systolic function is normal with an estimated ejection fraction in the range of 60-65%. Mild thickening of the mitral valve leaflets. [id number] mitral valve regurgitation. Mild thickening of the aortic valve leaflets. The estimated pulmonary arterial pressure is 38 mmHg. There is mild tricuspid valve regurgitation. BP: / HR: Rhythm: MEASUREMENTS (Male / Female) Normal Values Technical Quality: 2D ECHO LV Diastolic Diameter PLAX 3.5 cm 4.2 - 5.9 / 3.9 - 5.3 cm LV Systolic Diameter PLAX 2.5 cm IVS Diastolic Thickness 1.4 cm 0.6 - 1.0 / 0.6 - 0.9 cm LVPW Diastolic Thickness 1.2 cm 0.6 - 1.0 / 0.6 - 0.9 cm LV Relative Wall Thickness 0.7 RV Internal Dim ED PLAX 1.8 cm LVOT Diameter 1.8 cm Aortic Root Diameter 2.4 cm LA Systolic Diameter LX 2.7 cm 3.0 - 4.0 / 2.7 - 3.8 cm M-MODE Aortic Root Diameter MM 3.2 cm LA Systolic Diameter MM 3.1 cm LA Ao Ratio MM 1.0 AV Cusp Separation MM 2.2 cm DOPPLER AV Peak Velocity 133.5 cm/s AV Peak Gradient 7.1 mmHg LVOT Peak Velocity 88.4 cm/s LVOT Peak Gradient 3.1 mmHg AV Area Cont Eq pk 1.7 cm Mitral E Point Velocity 87.9 cm/s Mitral A Point Velocity 58.2 cm/s Mitral E to A Ratio 1.5 LV E' Lateral Velocity 10.5 cm/s Mitral E to LV E' Lateral Ratio 8.4 LV E' Septal Velocity 8.9 cm/s Mitral E to LV E' Septal Ratio 9.9 TR Peak Velocity 266.0 cm/s TR Peak Gradient 28.3 mmHg Right Atrial Pressure 10.0 mmHg Pulmonary Artery Systolic Pressu 38.3 mmHg Right Ventricular Systolic Press 38.3 mmHg PV Peak Velocity 108.0 cm/s PV Peak Gradient 4.7 mmHg FINDINGS LEFT VENTRICLE Normal left ventricular size. Mild concentric left ventricular hypertrophy. The left ventricular systolic function is normal with an estimated ejection fraction in the range of 60-65%. RIGHT VENTRICLE Normal right ventricular size and systolic function. LEFT ATRIUM The left atrial size is normal. RIGHT ATRIUM The right atrial size is normal. ATRIAL SEPTUM Normal atrial septal thickness without atrial level shunting by limited color doppler interrogation. AORTA The aortic root and proximal ascending aorta are normal in size on limited imaging. MITRAL VALVE Mild thickening of the mitral valve leaflets. [id number] mitral valve regurgitation. AORTIC VALVE Mild thickening of the aortic valve leaflets. TRICUSPID VALVE The estimated pulmonary arterial pressure is 38 mmHg. There is mild tricuspid valve regurgitation. PULMONARY VALVE No pulmonary valve regurgitation or stenosis. VESSELS The inferior vena cava is normal in size. PERICARDIUM No pericardial effusion. Harpreet Colby MD, FACC (Electronically Signed) Final Date:08 June 2018 10:42
[2018-06-08] MEDS: Sod Chloride 0.9% Inj 1,000 ML IV.CONT SCH (12:20)
--- NOTE | 2018-06-08 14:03 | P.CONID ---
History of Present Illness Service: ID Consult date: 06/08/18 Requesting Physician: Susanne Merida Reason for Consult: endocarditis Primary Care Provider: No Primary Care Physician History of Present Illness: 52 yo F who smokes crack, but adamantly denies ever IVDU presents with fever up to 104-105 F x 4-5 days + some cough with yellow sputum and R sided AMAYA CTA showed infiltrates, but 2 D echo was negative for vegetation She was started on broad specrtrum abx (Vancomycin + Piperacillin/Tazobactam fevers improved, blood clcx negative @ 1 day 2/2 UA abnormal but had 10 sq epis, would be difficult to reliably interprete Review of Systems All other systems reviewed negative except as stated in HPI PMFSH - History History Provided By: Patient - Medical History Medical History: Medical History (Last Reviewed 06/08/18 @ 13:44 by Daphne Bonilla MD) Anemia Gastritis Pancreatitis - Surgical History Surgical History: Surgical History (Last Reviewed 06/08/18 @ 13:44 by Daphne Bonilla MD) H/O shoulder surgery - Family History Family History: Family History (Last Reviewed 06/08/18 @ 13:44 by Daphne Bonilla MD) Other Diabetes mellitus - Social History I have reviewed the patient's Social History: Yes - Tobacco History Second Hand Smoke Exposure: Yes Tobacco Use In Past 30 Days: Yes Smoking Status: Current every day smoker Tobacco Type: Cigarettes - Alcohol History How Often Do You Have a Drink Containing Alcohol: 2 to 4 times a month - Substance Use History Substance History: Past History - Travel History Recent Travel in the [place] Within the Last 8 Weeks: No Recent Travel Out of the Country Within the Last 8 Weeks: No - Immunization History Tetanus Immunization: <5 Years Medications and Allergies Active Medications: Active Medications Acetaminophen (Tylenol) 650 mg PO Q4H PRN PRN Reason: Temp > 100.4 Al Hydroxide/Mg Hydroxide (Milk Of Magnesia Liq) 30 ml PO Q12H PRN PRN Reason: Mild Constipation Bisacodyl (Dulcolax Supp) 10 mg RECTAL DAILY PRN PRN Reason: SEVERE CONSITIPATION Flumazenil (Romazicon Inj) 0.2 mg IV.PUSH Q1M PRN PRN Reason: OVERSEDATION Haloperidol Lactate (Haldol Inj) 1 mg IV.PUSH Q15M PRN PRN Reason: for severe agitation Heparin Sodium (Porcine) (Heparin Inj) 5,000 units SQ Q8H FOR[facility]LY [facility], [facility] Last Admin: 06/08/18 12:24 Dose: 5,000 units Sodium Chloride (Ns Inj) 1,000 mls @ 70 mls/hr IV.CONT .[id number] [facility], [facility] Last Infusion: 06/08/18 12:21 Dose: 70 mls/hr Vancomycin HCl 1,000 mg/ (Sodium Chloride) 250 mls @ 250 mls/hr IV.SIG Q18H [facility], [facility] Last Infusion: 06/07/18 23:55 Dose: Infused Piperacillin/Tazobactam/Dextrose (Zosyn 4.5 Gm Premix) 4.5 gm in 100 mls @ 200 mls/hr IV.SIG Q6H [facility], [facility] Last Infusion: 06/08/18 11:20 Dose: Infused Lactulose (Lactulose Liq) 30 ml PO DAILY PRN PRN Reason: SEVERE CONSITIPATION Lorazepam (Ativan) 2 mg PO Q2H PRN PRN Reason: for CIWA 11-14 Lorazepam (Ativan Inj) 2 mg IV.PUSH Q2H PRN PRN Reason: for CIWA 11-14 Lorazepam (Ativan Inj) 2 mg IV.PUSH Q1H PRN PRN Reason: for CIWA 15-20 Lorazepam (Ativan Inj) 2 mg IV.PUSH Q15M PRN PRN Reason: for CIWA > 20 Lorazepam (Ativan Inj) 1 mg IV.PUSH Q4H PRN PRN Reason: for CIWA 8-10 Lorazepam (Ativan) 1 mg PO Q4H PRN PRN Reason: for CIWA 8-10 Miscellaneous Information ([facility] Ordered Lab Info) 0 each OTHER ONCE ONE Stop: 06/09/18 09:46 Ondansetron HCl (Zofran Inj) 4 mg IV.PUSH Q6H PRN PRN Reason: NAUSEA OR VOMITING Pharmacy Profile Note (Vancomycin Consult Pharmacy) 1 each OTHER UNSCH PRN PRN Reason: Pharmacy to dose Senna/Docusate Sodium (Mayra-Colace) 1 tab PO BID FOR[facility]LY [facility], [facility] Last Admin: 06/08/18 10:36 Dose: Not Given Sennosides (Senokot) 17.2 mg PO Q12H PRN PRN Reason: Moderate Constipation Sodium Chloride (Ns Flush) 2 ml IV.FLUSH PRN PRN PRN Reason: FLUSH AFTER USING IV ACCESS Sodium Chloride (Ns Flush) 2 ml IV.FLUSH BID [facility], [facility] Last Admin: 06/08/18 10:36 Dose: 2 ml Sodium Chloride (Ns Flush) 2 ml IV.FLUSH PRN PRN PRN Reason: FLUSH AFTER USING IV ACCESS Allergies Allergy/AdvReac Type Severity Reaction Status Date / Time No Known Allergies Allergy Unverified 01/02/18 18:18 Home Medications Medication Instructions Recorded Confirmed Type No Known Home Medications 06/07/18 06/07/18 History Exam Vital signs: Vital Signs 06/07/18 14:30 06/07/18 17:22 06/07/18 17:33 Temperature 102.6 F H 101.3 F H Pulse Rate 90 Respiratory Rate 16 16 Blood Pressure 140/72 Pulse Oximetry 95 06/07/18 18:28 06/07/18 22:49 06/08/18 04:00 Temperature 99.3 F 98.7 F 98.9 F Pulse Rate 82 73 76 Respiratory Rate 16 16 18 Blood Pressure 108/57 L 115/88 118/66 Pulse Oximetry 96 96 98 06/08/18 08:00 06/08/18 11:15 06/08/18 11:17 Temperature 99.2 F Pulse Rate 70 72 68 Respiratory Rate 18 Blood Pressure 112/68 Pulse Oximetry 99 06/08/18 11:45 Temperature 99.0 F Pulse Rate 65 Respiratory Rate 18 Blood Pressure 109/69 Pulse Oximetry 99 Intake & Output 06/07/18 06/08/18 06/08/18 18:59 06:59 18:59 Intake Total 1000 / 1000 1450 / 1450 600 / 600 Balance 1000 / 1000 1450 / 1450 600 / 600 Weight 54.431 kg 54.43 kg Intake: IV 1000 / 1000 550 / 550 600 / 600 NS Inj 1,000 ML @ 70 mls/hr IV. 500 / 500 CONT .[id number] [facility] Rx#:[id number] Zosyn 4.5 GM Premix 4.5 gm In 200 / 200 100 / 100 100 ml @ 200 mls/hr IV.SIG Q6H [facility]STOPHER Rx#:[id number] NS Inj 1,000 ML @ Wide Open IV. 1000 / 1000 SIG BOLUS ONE Rx#:[id number] Vancomycin Inj 1,000 MG In NS 250 / 250 Inj 250 ML @ 250 mls/hr IV.SIG Q18H CHRISTOPHER Rx#:[id number] Rocephin Inj 1,000 MG In NS Inj 100 / 100 100 ML @ 200 mls/hr IV.SIG ONCE ONE Rx#:[id number] Oral 480 / 480 Other 420 / 420 Other: Other Intake Source Saline Solution # Voids 4 Date of Last Bowel Movement 06/07/18 Weight On Admission 54.431 kg - Constitutional no acute distress, thin, disheveled - Routine HEENT Exam Head: Present: normocephalic, atraumatic Eye: Present: EOMI, PERRL ENT: Present: mucous membranes moist, oropharynx clear - Routine Neck Exam Present: supple, full ROM. Absent: lymphadenopathy - Routine Respiratory Exam Present: rhonchi (scattered). Absent: accessory muscle use, decreased breath sounds, respiratory distress - Routine Cardiovascular Exam Present: RRR, S1, S2. Absent: murmur, gallop, rubs - Routine Abdominal Exam Present: soft, normoactive bowel sounds. Absent: tenderness, distended, organomegaly, mass - Routine Extremities Exam Absent: cyanosis, clubbing, edema - Routine Skin Exam Present: intact, dry, warm. Absent: jaundice, rash - Routine Neurological Exam Present: alert, oriented X3, CN II-XII intact. Absent: sensory deficit, motor deficit - Routine Psychiatric Exam Present: cooperative, anxious, agitated Results - Labs CBC & Chem 7: 06/08/18 06:40 06/08/18 06:40 Labs: Laboratory Results - last 24 hr 06/07/18 06/07/18 06/07/18 16:20 16:20 16:30 WBC 14.1 H RBC 4.53 Hgb 14.0 Hct 42.1 MCV 92.9 MCH 31.0 MCHC 33.4 RDW 14.6 Plt Count 258 MPV 7.4 Neut % (Auto) 87.1 H Lymph % (Auto) 6.1 L [place] % (Auto) 6.7 Eos % (Auto) 0.0 Baso % (Auto) 0.1 Neut # (Auto) 12.3 H Lymph # (Auto) 0.9 L [place] # (Auto) 0.9 Eos # (Auto) 0.0 Baso # (Auto) 0.0 WBC Differential . Differential Comment Auto diff final ESR Sodium Potassium Chloride Carbon Dioxide Anion Gap BUN Creatinine Estimated GFR Random Glucose Lactic Acid 1.1 Calcium Total Bilirubin AST ALT Alkaline Phosphatase C-Reactive Protein Total Protein Albumin Urine Color Yellow Urine Clarity Hazy H Urine pH 7.0 Ur Specific [place] 1.015 Urine Protein 30 H Urine Glucose (UA) Negative Urine Ketones Negative Urine Occult Blood Moderate H Urine Nitrate Negative Urine Bilirubin Negative Urine Urobilinogen 2.0 H Ur Leukocyte Esterase Small H Urine RBC 8 H Urine WBC 12 H Ur Squamous Epith Cells 10 Urine Bacteria Rare H Urine Mucus Few H Micro UA Comment Culture indicated Ur Microscopic Review Not Reportable Urine Culture Comments Culture indicated 06/07/18 06/07/18 06/07/18 16:30 20:12 20:12 WBC RBC Hgb Hct MCV MCH MCHC RDW Plt Count MPV Neut % (Auto) Lymph % (Auto) [place] % (Auto) Eos % (Auto) Baso % (Auto) Neut # (Auto) Lymph # (Auto) [place] # (Auto) Eos # (Auto) Baso # (Auto) WBC Differential Differential Comment ESR 60 H Sodium 135 L Potassium 3.6 Chloride 99 Carbon Dioxide 28.9 Anion Gap 7 BUN 10 Creatinine 0.90 Estimated GFR 80 L Random Glucose 107 H Lactic Acid Calcium 8.3 L Total Bilirubin 0.4 AST 15 ALT 27 Alkaline Phosphatase 98 C-Reactive Protein 23.00 H Total Protein 7.6 Albumin 2.7 L Urine Color Urine Clarity Urine pH Ur Specific [place] Urine Protein Urine Glucose (UA) Urine Ketones Urine Occult Blood Urine Nitrate Urine Bilirubin Urine Urobilinogen Ur Leukocyte Esterase Urine RBC Urine WBC Ur Squamous Epith Cells Urine Bacteria Urine Mucus Micro UA Comment Ur Microscopic Review Urine Culture Comments 06/08/18 06/08/18 06:40 06:40 WBC 12.7 H RBC 3.83 L Hgb 11.7 D Hct 35.8 MCV 93.4 MCH 30.6 MCHC 32.8 RDW 14.9 Plt Count 223 MPV 7.3 Neut % (Auto) 84.1 H Lymph % (Auto) 9.2 [place] % (Auto) 6.2 Eos % (Auto) 0.2 Baso % (Auto) 0.3 Neut # (Auto) 10.7 H Lymph # (Auto) 1.2 [place] # (Auto) 0.8 Eos # (Auto) 0.0 Baso # (Auto) 0.0 WBC Differential . Differential Comment Auto diff final ESR Sodium 138 Potassium 3.4 L Chloride 104 Carbon Dioxide 24.5 Anion Gap 10 BUN 7 Creatinine 0.94 Estimated GFR 76 L Random Glucose 178 H Lactic Acid Calcium 7.7 L Total Bilirubin AST ALT Alkaline Phosphatase C-Reactive Protein Total Protein Albumin Urine Color Urine Clarity Urine pH Ur Specific [place] Urine Protein Urine Glucose (UA) Urine Ketones Urine Occult Blood Urine Nitrate Urine Bilirubin Urine Urobilinogen Ur Leukocyte Esterase Urine RBC Urine WBC Ur Squamous Epith Cells Urine Bacteria Urine Mucus Micro UA Comment Ur Microscopic Review Urine Culture Comments - Imaging Impressions Chest X-Ray 06/07/18 15:46 CONCLUSION: Right lung mass should be excluded. CT chest suggested. Chest CTA 06/07/18 17:56 CONCLUSION: 1. No pulmonary emboli. 2. Bilateral lower lobe infiltrates most pronounced involving the right lower lobe. Infectious etiology is suspected. Given the nodularity I would suggest a follow-up CT of the thorax following resolution of symptoms to document complete resolution. Assessment and Plan - Plan 52 yo no IVDU PNA, RLL infiltrate fever - resolved on empiric abx AMAYA Doubt endocarditis cont current abx HIV testying (counselled, agreable MR head cultures, sputum, blood
[2018-06-08] MEDS ORDERED: Gadobutrol PF 7.5 MMOL/7.5 ML Vial (for RAD) IV.SIG ONE (15:42)
--- NOTE | 2018-06-08 15:53 | MR ---
EXAM DATE: 06/08/2018 3:43 PM EST AGE/SEX: 52 years / Female INDICATIONS: Cephalgia. CLINICAL DATA: This is the patient's subsequent encounter. Patient reports that signs and symptoms h ave been present for 1 day and indicates a pain score of 0/10. MEDICAL/SURGICAL HISTORY: Gastritis. Pancreatitis. None. [place] [facility] [place]. . TECHNIQUE: Multiplanar, multisequence examination of the brain was performed without and with 5 ml Ga davist (gadobutrol) contrast as a single exam dose. FINDINGS: Cerebrum: The ventricles are normal for age. Alcantar-white matter differentiation maintained. No eviden ce of midline shift, mass lesion, hemorrhage or acute infarction. No extraaxial fluid collections ar e seen. The pituitary gland and suprasellar cistern are normal in configuration. White Matter: No significant signal abnormalities are seen in the white matter. Posterior Fossa: The cerebellum and brainstem are intact. The 4th ventricle is midline. The cerebel lopontine angle is unremarkable. The cerebellar tonsils are normal in position. Diffusion Imaging: No focal areas of restricted diffusion are seen. No evidence of acute infarction . Extracranial: The visualized portions of the orbits and paranasal sinuses are unremarkable. Post Contrast: No abnormal areas of parenchymal or dural enhancement. No evidence of blood-brain ba rrier breakdown. CONCLUSION: 1. Unremarkable MRI of the brain Electronically signed by: Zachary Najera MD Board Certified Radiologist 06/08/2018 3:52 PM EST
--- NOTE | 2018-06-08 16:20 | ECG ---
Date Performed: 06/07/2018 Time Performed: 20:13:33 PTAGE: 52 years EKG: Sinus rhythm NORMAL ECG Since PREVIOUS TRACING , no significant change noted PREVIOUS TRACIN03/17/2016 19.13 DOCTOR: Kelly Sanchez Interpretating Date/Time 06/08/2018 16:18:25
[2018-06-08] MEDS: Vancomycin Inj 1,000 MG in Sodium Chlor 0.9% Inj 250 ML IV.SIG SCH (17:01)
[2018-06-09] MEDS: Sod Chloride 0.9% Inj 1,000 ML IV.CONT SCH ×2 (01:04→16:20)
[2018-06-09] MEDS: Piperacil/Tazo 4.5 GM Premix 4.5 GM/100 ML BAG IV.SIG SCH ×4 (02:55→21:13)
[2018-06-09] MEDS: Heparin - SQ 10,000 UNITS/ML Vial SQ SCH ×3 (04:53→21:14)
[2018-06-09] MEDS: Senna/Docusate Sodium 8.6/50 MG Tablet PO SCH ×2 (08:17→21:15)
[2018-06-09 09:09] LABS: Baso % (Auto) 0.3 % (0.0-2.0); Eos # (Auto) 0.1 th/mm3 (0.0-0.4); Hematocrit 38.4 % (35.0-46.0); Hemoglobin 12.8 gm/dL (11.6-15.3); Lymph # (Auto) 1.6 th/mm3 (1.0-4.8); Lymph % (Auto) 27.1 % (9.0-44.0); Mean Corpuscular HGB Conc 33.3 % (32.0-36.0); Mean Corpuscular Hemoglobin 31.2 pg (27.0-34.0); Mean Corpuscular Volume 93.6 fL (80.0-100.0); Mean Platelet Volume 7.1 fL (7.0-11.0); Mono # (Auto) 0.7 th/mm3 (0.0-0.9); Mono % (Auto) 11.5 % (0.0-8.0); Neut # (Auto) 3.4 th/mm3 (1.8-7.7); Neut % (Auto) 59.1 % (16.0-70.0); Platelet Count 262 th/mm3 (150-450); Red Cell Distribution Width 14.9 % (11.6-17.2); White Blood Count 5.7 th/mm3 (4.0-11.0)
[2018-06-09 09:28] LABS: Anion Gap 5 meq/L (5-15); Blood Urea Nitrogen 7 mg/dL (7-18); Calcium 8.3 mg/dL (8.5-10.1); Carbon Dioxide 28.8 meq/L (21.0-32.0); Chloride 108 meq/L (98-107); Glomerular Filtration Rate Greater Than 89 mL/min (>89); Glucose,Random 80 mg/dL (74-106); Potassium 3.7 meq/L (3.5-5.1); Sodium 142 meq/L (136-145)
[2018-06-09] MEDS ORDERED: Pharmacy Ordered Lab Info OTHER ONE (09:45)
--- NOTE | 2018-06-09 10:16 | P.PNIM ---
Subjective Interval history: Follow up of 52 y/o female here for Pneumonia. She states she is feeling much better, only complaining of a productive cough. No fever/chills. She states she is urinating a lot and is frustrated but no complaints of dysuria. Her headache has resolved. Denies chest pain, shortness of breath, and abdominal pain. She has no other medical complaints at this time. Physical Exam Vital signs: Vital Signs 06/08/18 11:15 06/08/18 11:17 06/08/18 11:45 Temperature 99.0 F Pulse Rate 72 68 65 Respiratory Rate 18 Blood Pressure 109/69 Pulse Oximetry 99 06/08/18 15:00 06/08/18 20:00 06/09/18 00:03 Temperature 99.2 F 98.1 F Pulse Rate 71 67 61 Respiratory Rate 18 16 Blood Pressure 101/68 133/83 Pulse Oximetry 97 98 06/09/18 08:00 Temperature 97.8 F Pulse Rate 58 L Respiratory Rate 18 Blood Pressure 119/76 Pulse Oximetry 97 Intake & Output 06/08/18 06/09/18 06/09/18 18:59 06:59 18:59 Intake Total 950 / 950 700 / 700 100 / 100 Balance 950 / 950 700 / 700 100 / 100 Intake: IV 950 / 950 700 / 700 100 / 100 NS Inj 1,000 ML @ 70 mls/hr IV. 500 / 500 500 / 500 CONT .[id number] [facility]HER Rx#:[id number] Zosyn 4.5 GM Premix 4.5 gm In 200 / 200 200 / 200 100 / 100 100 ml @ 200 mls/hr IV.SIG Q6H [facility]HER Rx#:[id number] Vancomycin Inj 1,000 MG In NS 250 / 250 Inj 250 ML @ 250 mls/hr IV.SIG Q18H [facility]HER Rx#:[id number] Other: # Voids 4 Date of Last Bowel Movement 06/08/18 06/08/18 Narrative: Exam Narrative: GENERAL: Well-developed middle age female appearing in NAD. HEENT: Atraumatic. Normocephalic. CARDIOVASCULAR: Regular rate and rhythm. No murmur appreciated. RESPIRATORY: No accessory muscle use. Slight bilateral lower lobe rhonchi appreciated. Breath sounds equal. GASTROINTESTINAL: Abdomen soft, non-tender, nondistended. MUSCULOSKELETAL: No obvious deformities. No clubbing. No cyanosis. No edema. NEUROLOGICAL: Awake and alert. Motor grossly within normal limits. Normal speech. PSYCHIATRIC: Appropriate mood and affect; insight and judgment normal. Results - Labs CBC & Chem 7: 06/09/18 08:34 06/09/18 08:34 Laboratory Results - last 24 hr 06/08/18 06/09/18 06/09/18 17:00 08:34 08:34 WBC 5.7 RBC 4.10 Hgb 12.8 Hct 38.4 MCV 93.6 MCH 31.2 MCHC 33.3 RDW 14.9 Plt Count 262 MPV 7.1 Neut % (Auto) 59.1 Lymph % (Auto) 27.1 [place] % (Auto) 11.5 H Eos % (Auto) 2.0 Baso % (Auto) 0.3 Neut # (Auto) 3.4 Lymph # (Auto) 1.6 [place] # (Auto) 0.7 Eos # (Auto) 0.1 Baso # (Auto) 0.0 WBC Differential . Differential Comment Auto diff final Sodium 142 Potassium 3.7 Chloride 108 H Carbon Dioxide 28.8 Anion Gap 5 BUN 7 Creatinine 0.75 Estimated GFR Greater than 89 Random Glucose 80 Calcium 8.3 L Magnesium 2.0 HIV 1&2 Ab/P24 Ag 4thGn Nonreactive Microbiology 06/08/18 15:07 Sputum - Expectorated Sputum Gram Stain - Final 06/07/18 16:20 Clean Catch Urine Urine Culture - Final 50-100,000 cfu/mL mixed river (probable contaminants ) 06/07/18 16:20 Blood - Peripheral Aerobic Blood Culture - Preliminary No growth in 1 day 06/07/18 16:20 Blood - Peripheral Anaerobic Blood Culture - Preliminary No growth in 1 day 06/07/18 16:30 Blood - Peripheral Aerobic Blood Culture - Preliminary No growth in 1 day 06/07/18 16:30 Blood - Peripheral Anaerobic Blood Culture - Preliminary No growth in 1 day - Imaging Impressions Head MRI 06/08/18 00:00 CONCLUSION: 1. Unremarkable MRI of the brain Assessment and Plan - Plan 52 y/o female with past medical history of cocaine abuse presents with a 5 day history of fever and chills ruled as sepsis with CAP. Sepsis with Community Acquired Pneumonia, Acute: Meets sepsis criteria with leukocytosis WBC: 14.1K and fever of 102.6 on admission. Probable source is pneumonia. -Chest CT shows bilateral lower lobe infiltrates with nodular features, concern for embolic disease, 2D echo ruled out endocarditis. -Continue abx with Vancomycin/Zosyn -Infectious disease consulted, appreciate assistance -Blood cultures show NGTD 06/09 -Sputum culture pending -Patient feeling better this morning, fever is trending down 101.3 -> 99.2 - > 97.8 Cocaine abuse: Per patient report -Cessation counseling provided -Patient expressed desire to be sober, although worried she cannot do it. Has tentative plan in place to get on SS Hypokalemia: Potassium 3.4 -Gave PO KCl 20 mEq x1 -Repeat labs show potassium trending up 3.4 --> 3.7 06/09 DVT Prophylaxis: Heparin Note prepared by Nolvia LUI and reviewed by Daniela Miller PA-C, agrees with above assessment and plan.
[2018-06-09] MEDS: Vancomycin Inj 1,000 MG in Sodium Chlor 0.9% Inj 250 ML IV.SIG SCH ×2 (10:18→22:16)
--- NOTE | 2018-06-09 17:27 | P.PNIM ---
Subjective Interval history: Follow up for sepsis with pneumonia. The patient reports feeling slightly better today, however still with continued productive cough. Has remained afebrile overnight. Denies fevers/chills. She reports frequent urination, denies dysuria. Denies any chest pain or shortness of breath. She is tolerating oral intake. She is worried about being discharged and being exposed to her prior habits with smoking crack cocaine and marijuana. She is familiar with the [employer]. Vital signs reviewed and stable. No other medical complaints at this time. Physical Exam Vital signs: Vital Signs 06/08/18 20:00 06/09/18 00:03 06/09/18 08:00 Temperature 99.2 F 98.1 F 97.8 F Pulse Rate 67 61 72 Respiratory Rate 18 16 18 Blood Pressure 101/68 133/83 119/76 Pulse Oximetry 97 98 97 06/09/18 11:58 06/09/18 13:18 06/09/18 16:00 Temperature 98.4 F 98.2 F Pulse Rate 59 L 66 60 Respiratory Rate 18 18 18 Blood Pressure 119/78 126/70 123/72 Pulse Oximetry 98 98 98 Intake & Output 06/08/18 06/09/18 06/09/18 18:59 06:59 18:59 Intake Total 950 / 950 700 / 700 1350 / 1350 Balance 950 / 950 700 / 700 1350 / 1350 Weight 52 kg Intake: IV 950 / 950 700 / 700 1350 / 1350 NS Inj 1,000 ML @ 70 mls/hr IV. 500 / 500 500 / 500 1000 / 1000 CONT .[id number] [facility] Rx#:[id number] Zosyn 4.5 GM Premix 4.5 gm In 200 / 200 200 / 200 100 / 100 100 ml @ 200 mls/hr IV.SIG Q6H [facility] Rx#:[id number] Vancomycin Inj 1,000 MG In NS 250 / 250 250 / 250 Inj 250 ML @ 250 mls/hr IV.SIG Q18H [facility] Rx#:[id number] Other: # Voids 4 Date of Last Bowel Movement 06/08/18 06/08/18 06/08/18 Narrative: GENERAL: Well-developed middle age female in [facility]. SKIN: Warm and dry. No obvious rash. CARDIOVASCULAR: Regular rate and rhythm. No murmur appreciated. RESPIRATORY: No accessory muscle use. Mild bilateral lower lobe rhonchi appreciated. Breath sounds equal bilaterally. GASTROINTESTINAL: Abdomen soft, non-tender, nondistended. Normoactive bowel sounds x4. MUSCULOSKELETAL: No obvious deformities. No clubbing. No cyanosis. No edema. NEUROLOGICAL: Awake and alert. Motor grossly within normal limits. Normal speech. PSYCHIATRIC: Appropriate mood and affect; insight and judgment normal. Results Labs CBC & Chem 7: 06/09/18 08:34 06/09/18 08:34 Labs: Microbiology 06/08/18 15:07 Sputum - Expectorated Sputum Gram Stain - Final 06/08/18 15:07 Sputum - Expectorated Sputum Sputum Culture - Preliminary Heavy growth normal respiratory river at 24 hours 06/07/18 16:20 Blood - Peripheral Aerobic Blood Culture - Preliminary No growth in 2 days 06/07/18 16:20 Blood - Peripheral Anaerobic Blood Culture - Preliminary No growth in 2 days 06/07/18 16:30 Blood - Peripheral Aerobic Blood Culture - Preliminary No growth in 2 days 06/07/18 16:30 Blood - Peripheral Anaerobic Blood Culture - Preliminary No growth in 2 days 06/07/18 16:20 Clean Catch Urine Urine Culture - Final 50-100,000 cfu/mL mixed river (probable contaminants ) Imaging Imaging: Chest X-Ray 06/07/18 15:46 CONCLUSION: Right lung mass should be excluded. CT chest suggested. Chest CTA 06/07/18 17:56 CONCLUSION: 1. No pulmonary emboli. 2. Bilateral lower lobe infiltrates most pronounced involving the right lower lobe. Infectious etiology is suspected. Given the nodularity I would suggest a follow-up CT of the thorax following resolution of symptoms to document complete resolution. Head MRI 06/08/18 00:00 CONCLUSION: 1. Unremarkable MRI of the brain Assessment and Plan Plan 52 y/o female with past medical history of cocaine abuse presents with a 5 day history of fever and chills ruled as sepsis with CAP. Sepsis with Community Acquired Pneumonia: Meets sepsis criteria with leukocytosis WBC: 14.1K, fever 102.6, suspect source-PNA. Rule out endocarditis. -Chest CTA negative for PE, shows bilateral lower lobe infiltrates with nodular features -CT findings concern for embolic disease, however 2D echo negative for vegetations/endocarditis. -Brain MRI unremarkable, negative for embolic disease -Continue abx with IV Vancomycin/Zosyn per ID -Infectious disease consulted, appreciate assistance -Blood cultures show NGTD -Sputum culture pending, preliminary with heavy growth normal respiratory river -Patient feeling better this morning, fever and leukocytosis resolved -Possible d/c tomorrow 06/10 if stable and cleared by ID - later discussed with Dr. Bonilla, can d/c on community acquired PNA abx if cultures negative. -Discussed with the patient her CT findings with nodular features, would be concerning for malignancy if does not resolve after treatment for PNA; recommended repeat outpatient CT in 3 months, patient verbalized understanding. Cocaine abuse: Per patient report -Extensive cessation counseling provided -Patient expressed desire to be sober, although worried she cannot do it. Has tentative plan in place to get on SS -Case management to provide information on drug rehab at discharge such as [facility] Hypokalemia: Potassium 3.4 -Given PO KCl 20 mEq x1 -Repeat labs improved, K 3.7 today DVT Prophylaxis: Heparin Progress Note: Quality VTE Deep Vein Thrombosis/Pulmonary Embolism Present on Admission: No
[2018-06-10 01:46] VITALS: RESP 18
[2018-06-10] MEDS: Piperacil/Tazo 4.5 GM Premix 4.5 GM/100 ML BAG IV.SIG SCH ×2 (03:43→09:08)
[2018-06-10] MEDS: Heparin - SQ 10,000 UNITS/ML Vial SQ SCH (04:05)
[2018-06-10] MEDS: Sod Chloride 0.9% Inj 1,000 ML IV.CONT SCH (06:36)
[2018-06-10 08:43] VITALS: BP 125/74; TEMP 98.5; O2SAT 98
[2018-06-10] MEDS: Senna/Docusate Sodium 8.6/50 MG Tablet PO SCH (09:08)
[2018-06-10 09:20] LABS: Glomerular Filtration Rate Greater Than 89 mL/min (>89)
[2018-06-10] MEDS ORDERED: Pharmacy Ordered Lab Info OTHER ONE (09:45)
[2018-06-10] MEDS: Vancomycin Inj 1,000 MG in Sodium Chlor 0.9% Inj 250 ML IV.SIG SCH (10:21)
[2018-06-10 10:42] VITALS: PULSE 78
--- NOTE | 2018-06-10 11:21 | P.DS ---
DS: Providers Date of admission: 06/07/18 19:55 Primary care physician: No Primary Care Physician Consults: 06/07/18 20:42 Consult to Infectious Diseases Routine Consulting Provider: Daphne Bonilla Reason for Consultation: concern for septic emboli/endocarditis Notified:: Service Spoke with:: Jessie Date Notified:: 06/07/18 Time Notified:: 20:49 Ordering Provider: DEBRA Brief History from admission: HPI on admission as documented by the admitting physician: 52-year-old female with a past medical history significant for cocaine abuse presents to the emergency department for evaluation of fever. The patient reports that her fever at home was as high as 104. She reports fevers for the past 5 days. She endorses an accompanying headache. She denies any chest pain , shortness of breath or cough/congestion. Abdominal pain. No nausea/vomiting/ diarrhea. No focal neurologic deficits. Patient update on day of discharge: Patient reports she is feeling good today. Breathing comfortably on room air. No cough or chest pain. No fevers. We discussed discharge planning at length and the need to complete antibiotics treatment. DS: Summary 52 y/o female with past medical history significant for cocaine abuse presents with a 5 day history of fever and chills. The patient was admitted for sepsis secondary to community-acquired pneumonia. There were concern for embolic disease and endocarditis. However blood cultures to date is negative and a 2D echo was negative for vegetations. The patient was followed by infectious disease and initially treated with vancomycin and Zosyn. Sputum cultures did not show any predominant organism. Her condition significantly improved. She is discharged on cefuroxime and azithromycin to complete treatment for community -acquired pneumonia. Regarding cocaine abuse, the patient was extensively counseled regarding cessation. She was given information on drug rehabilitation programs. Hypokalemia corrected during her hospitalization. Time Spent with Patient Total time spent providing and/or coordinating discharge services: Quality: VTE Deep Vein Thrombosis/Pulmonary Embolism Present on Admission: No Exam Narrative Exam Narrative: GENERAL: Patient appears older than stated age, in no apparent distress. CARDIOVASCULAR: Normal rate and regular rhythm without murmurs, gallops, or rubs. RESPIRATORY: Good respiratory efforts. Breath sounds equal and clear to auscultation bilaterally. GASTROINTESTINAL: Abdomen soft, non-tender, non-distended. Normal active bowel sounds MUSCULOSKELETAL: Extremities without cyanosis, or edema. NEURO: Alert & Oriented x4 to person, place, time, situation. Moves all ext x4 PSYCH: Appropriate mood and affect. Results Labs on day of discharge: Labs from last 24 hours 06/10/18 06/10/18 06/09/18 09:40 06:00 16:52 Creatinine 0.73 Estimated GFR Greater than 89 POC Glucose 105 Vancomycin Trough 11.9 H 06/09/18 08:04 Creatinine Estimated GFR POC Glucose Vancomycin Trough 4.0 L Preliminary micro results at discharge 06/07/18 16:20 Aerobic Blood Culture - Preliminary Blood - Peripheral No growth in 3 days Anaerobic Blood Culture - Preliminary No growth in 3 days 06/07/18 16:30 Aerobic Blood Culture - Preliminary Blood - Peripheral No growth in 3 days Anaerobic Blood Culture - Preliminary No growth in 3 days 06/08/18 15:07 Sputum Culture - Preliminary Sputum - Expectorated Sputum Heavy growth normal respiratory river at 24 hours Impressions ITS Impressions Chest X-Ray 06/07/18 15:46 CONCLUSION: Right lung mass should be excluded. CT chest suggested. Chest CTA 06/07/18 17:56 CONCLUSION: 1. No pulmonary emboli. 2. Bilateral lower lobe infiltrates most pronounced involving the right lower lobe. Infectious etiology is suspected. Given the nodularity I would suggest a follow-up CT of the thorax following resolution of symptoms to document complete resolution. Head MRI 06/08/18 00:00 CONCLUSION: 1. Unremarkable MRI of the brain Discharge Plan Discharge Disposition Patient Disposition: 01 Discharge Home Discharge Condition Condition: Stable Discharge Order Discharge Orders: Discharge Order (Routine); Ordered 06/10/18 Ordered By: Mukul Haji Discharge Details Anticipated Discharge Date: 06/10/18 Physicians Team ED Provider: Sherry Sheriff ED Midlevel Provider: Shannon King Primary Care Provider: Primary Care Aixa Echavarria Attending Provider: Mukul Haji Other Providers: Daphne Bonilla Rxs /Orders / Referrals /Forms Prescriptions: New cefuroxime axetil 500 mg tablet 500 mg PO BID 10 Days Qty: 20 RF: 0 azithromycin 250 mg tablet 250 mg PO DAILY 4 Days Qty: 4 RF: 0 No Action No Known Home Medications RF: 0 Ambulatory Orders / Order Sets / DME: CT chest w IV con (Routine) Timeframe: 3 Months Location: Determined by Patient Ordered By: Daniela Miller Referrals: Ruperto Barrera, [Non-Staff] - See Instructions Primary Care Aixa Echavarria [Primary Care Provider] - See Instructions Enanadeen Guajardo, [Non-Staff] - See Instructions Discharge Instructions Patient Printed Instructions: Cefuroxime (By mouth), Azithromycin (By mouth), Endocarditis (DC), Urinary Tract Infection in Women (DC) Post Discharge Care Plan Care Plan Goals: Discharge Care Plan Goals for Pneumonia You have been diagnosed with pneumonia. This is a serious lung infection. Most cases of pneumonia are caused by bacteria. Pneumonia most often occurs in older adults, young children, and people with chronic health problems. Directions to Meet your Goals: 1. Home care: * Take your medicine exactly as directed. Dont skip doses. Continue taking your antibiotics as until they are all gone, even if you start to feel better. This will prevent the pneumonia from coming back. * Drink at least 8 glasses of water daily, unless directed otherwise. This helps to loosen and thin secretions so that you can cough them up. * Use a cool-mist humidifier in your bedroom. Be sure to clean the humidifier daily. * Dont use medicines to suppress your cough unless your cough is dry, painful, or interferes with your sleep. Coughing up mucus is normal. You may use an expectorant if your doctor says its okay. * You can use warm compresses or a heating pad on the lowest setting to relieve chest discomfort. Use several times a day for 15-20 minutes at a time. To prevent injury to your skin, set the temperature to warm, not hot. Dont put the compress or pad directly on your skin. Make certain it has a cover or wrap it in a towel. This is to prevent skin aguilera. * Get plenty of rest until your fever, shortness of breath, and chest pain go away. * Plan to get a flu shot every year. The flu is a common cause of pneumonia. Getting a flu shot every year can help prevent both the flu and pneumonia. 2. Getting the pneumococcal vaccine: * Talk with your doctor about getting the pneumococcal vaccine. Pneumococcal pneumonia is caused by bacteria that spread from person to person. It can cause minor problems, such as ear infections. But it can also turn into life- threatening illnesses of the lungs (pneumonia), the covering of the brain and spinal cord (meningitis), and the blood (bacteremia). * Make sure to ask your doctor if you should have the vaccine. Children under 2 years of age, adults over age 65, people with certain health conditions, and smokers are at the highest risk of pneumococcal disease. This vaccine can help prevent pneumococcal disease in both adults and children. 3. Follow-up care: Do Not miss your follow-up appointment. Keep up with all your appointments and yearly check ups 4. When to call your doctor: Call your doctor immediately if you have any of the following: Fever of 100.4F (38C) or higher, or as directed by your healthcare provider Mucus from the lungs (sputum) thats yellow, green, bloody, or smells bad Vomiting Any symptoms that get worse 5. Call 911: Call 911 right away if you have any of the following: Chest pain Trouble breathing Blue lips or fingernails Status ED Status: Left Department
== END 2018-06-10 12:58 | disposition home or self-care (01) | DRG 871 ==
LOC: NEPB 14:10 → NEDA 19:55 → NEPHCDU 21:42 → N04 06-09 12:34
PROVIDERS: ADMIT Family Medicine; ATTEND Family Medicine
DX: E87.6 Hypokalemia; Z59.0 Homelessness; F17.210 Nicotine dependence, cigarettes, uncomplicated; R51 Headache; A41.9 Sepsis, unspecified organism; R91.8 Other nonspecific abnormal finding of lung field; F12.90 Cannabis use, unspecified, uncomplicated; J18.9 Pneumonia, unspecified organism; F14.10 Cocaine abuse, uncomplicated
CPT/HCPCS: 70553; 71010; 71045; 71275; 80048; 80053; 80202; 81001; 82565; 82948; 82962; 83605; 83735; 85025; 85651; 85652; 86140; 87040; 87070; 87086; 87205; 87275; 87276; 87389; 87804; 90760; 93005; 93306; 96360; 99285; A9585; J0696; J1644; J2543; J3370; J7030; J7050; Q9967